=== PATIENT | female | born 1985 | race Caucasian/White ===

== ENCOUNTER 2020-11-28 17:17 | Emergency (ER) | payer OTHER ==
[2020-11-28 17:35] VITALS: RESP 18; TEMP 98.3
--- NOTE | 2020-11-28 18:25 | XR ---
EXAMINATION TYPE: XR foot complete RT DATE OF EXAM: 11/28/2020 COMPARISON: NONE HISTORY: Foot pain TECHNIQUE: 3 views FINDINGS: There is nondisplaced transverse fracture across the base of the fifth metatarsal with some lucency and consistent with subacute fracture. The other metatarsals are intact. The toes are intact. Hindfoot is intact. There is some mild soft ti ssue swelling of the forefoot. IMPRESSION: Subacute nondisplaced fracture of the proximal fifth metatarsal.
[2020-11-28] MEDS ORDERED: KETOROLAC 15 MG/ML 1 ML VIAL IM STA (18:26)
--- NOTE | 2020-11-28 18:32 | ED ---
Lower Extremity Injury HPI - General Chief Complaint: Extremity Injury, Lower Stated Complaint: Rt foot injury Time Seen by Provider: 11/28/20 18:23 Source: patient, RN notes reviewed Mode of arrival: ambulatory Limitations: no limitations - History of Present Illness Initial Comments: Patient is a 35-year-old female that presents to the emergency department complaining of right foot pain. She notes that she injured it approximately week ago and feels that she broke something. She notes the pain is in the lateral aspect. She notes that her kids slammed the door on it and then she rolled a rock and felt a crunch. She noted she did walking on it since then but his had significant pain. She notes her pain is approximately an 8 out of 10 with no relief. She denied any numbness tingling decreased range of motion sensation chest pain shortness of breath headache nausea vomiting diarrhea constipation fever fatigue chills. - Related Data Previous Rx's Medication Instructions Recorded Ibuprofen [Motrin] 600 mg PO Q8HR PRN #30 tab 11/28/20 Allergies Allergy/AdvReac Type Severity Reaction Status Date / Time acetaminophen Allergy Rash/Hives Verified 11/28/20 17:35 [From Tylenol-Codeine #3] codeine Allergy Rash/Hives Verified 11/28/20 17:35 [From Tylenol-Codeine #3] Review of Systems ROS Statement: Those systems with pertinent positive or pertinent negative responses have been documented in the HPI. ROS Other: All systems not noted in ROS Statement are negative. Past Medical History Past Medical History: No Reported History History of Any Multi-Drug Resistant Organisms: None Reported Past Surgical History: Section, Cholecystectomy Past Psychological History: Anxiety Smoking Status: Current every day smoker Past Alcohol Use History: None Reported Past Drug Use History: None Reported General Exam Limitations: no limitations General appearance: alert, in no apparent distress Head exam: Present: atraumatic, normocephalic, normal inspection Eye exam: Present: normal appearance, PERRL, EOMI. Absent: scleral icterus, conjunctival injection, periorbital swelling Neck exam: Present: normal inspection Respiratory exam: Present: normal lung sounds bilaterally. Absent: respiratory distress, wheezes, rales, rhonchi, stridor Cardiovascular Exam: Present: regular rate, normal rhythm, normal heart sounds. Absent: systolic murmur, diastolic murmur, rubs, gallop, clicks Extremities exam: Present: normal inspection, full ROM, normal capillary refill. Absent: tenderness, pedal edema, joint swelling, calf tenderness Right Foot/Toe exam: Present: normal inspection, tenderness (The lateral aspect along the fifth metatarsal). Absent: swelling, abrasion, ecchymosis, deformity, crepitus, dislocation, erythema Neurological exam: Present: alert, oriented X3 Psychiatric exam: Present: normal affect, normal mood Skin exam: Present: warm, dry, intact, normal color. Absent: rash Course Vital Signs 11/28/20 17:31 Temperature 98.3 F Pulse Rate 94 Respiratory 18 Rate Blood Pressure 108/67 O2 Sat by Pulse 100 Oximetry Procedures - Orthopedic Splinting/Casting Injury #1 Side: right Lower Extremity Injury Location: foot Lower Extremity Immobilizer: posterior splint, Felix wrap, synthetic pre-padded splint Medical Decision Making - Medical Decision Making 35-year-old female complaining of right foot pain status post one week from injury. X-ray right foot ordered. X-ray shows a nondisplaced fracture of the fifth metatarsal. Case discussed with Dr. Roque, patient can discharge home with follow-up to orthopedist. - Radiology Data Radiology results: report reviewed, image reviewed X-ray of the right foot: Subacute nondisplaced fracture of the proximal fifth metatarsal. Disposition Clinical Impression: Nondisplaced fracture of fifth right metatarsal bone Disposition: HOME SELF-CARE Condition: Stable Instructions (If sedation given, give patient instructions): Foot Fracture in Adults (ED) Additional Instructions: Please return to the Emergency Department if symptoms worsen or any other concerns. Keep splint on throughout the day may take off to bathe, follow-up with orthopedist in the next several days. Take, 3 as prescribed. Is patient prescribed a controlled substance at d/c from ED?: No Referrals: None,Stated [Primary Care Provider] - 1-2 days Franc Castellano DO [Doctor of Osteopathic Medicine] - 1-2 days Time of Disposition: 18:31
[2020-11-28] MEDS ORDERED: ACET/COD 300 MG/30 MG STARTER PACK 6 TAB BTL PO STA (18:35)
[2020-11-28 18:38] VITALS: BP 113/75; PULSE 100
== END 2020-11-28 20:03 | disposition home or self-care (01) ==
LOC: EC 17:17
DX: S92.354A Nondisplaced fracture of fifth metatarsal bone, right foot, initial encounter for closed fracture (principal); F17.200 Nicotine dependence, unspecified, uncomplicated; Z88.5 Allergy status to narcotic agent; Z88.6 Allergy status to analgesic agent; W22.09XA Striking against other stationary object, initial encounter
CPT/HCPCS: 73630; 29515; 96372; 99283; J1885